=== PATIENT | female | born 1970 | race Caucasian/White ===

== ENCOUNTER 2022-10-01 09:27 | Day surgery (SDC) | payer OTHER, SELFPAY ==
--- NOTE | 2022-09-27 15:47 | RAD REPORT ---
EXAM DESCRIPTION: RAD - Chest Pa And Lat (2 Views) - 09/27/2022 3:33 pm CLINICAL HISTORY: PREOP COMPARISON: No comparisons FINDINGS: Lines: None. Lungs: No evidence of edema or pneumonia. Pleural: No significant pleural effusions or pneumothorax. Cardiac: The heart size is within normal limits. Mediastinum: Within normal limits. Bones: No acute fractures. Other: None IMPRESSION: No acute cardiopulmonary disease.
[2022-09-27 16:14] LABS: Absolute Lymphocytes (CBC) 2.2 K/uL (0.7-4.9); Hematocrit 39.5 % (36.0-45.0); Lymphocytes % 33.9 % (15.3-44.8); RBC Red Blood Cell Count 4.49 M/uL (3.86-4.86)
[2022-09-27 16:42] LABS: ALT/SGPT 30 U/L (13-56); AST/SGOT 17 U/L (15-37); Albumin 3.8 g/dL (3.4-5.0); Alkaline Phosphatase 75 U/L (45-117); Amylase 46 U/L (25-115); BUN Blood Urea Nitrogen 13 mg/dL (7-18); Bicarbonate 28 mmol/L (21-32); Bilirubin Total 0.2 mg/dL (0.2-1.0); Glomerular Filtration Rate 95 ml/min (=/>90); Glucose Level 108 mg/dL (74-106); Lipase 172 U/L (73-393); Potassium 3.7 mmol/L (3.5-5.1); Protein, Total 7.3 g/dL (6.4-8.2); Sodium Level 137 mmol/L (136-145)
[2022-09-27 16:45] LABS: Bilirubin Direct < 0.1 mg/dL (0-0.2)
--- NOTE | 2022-09-28 12:52 | EKG ---
Test Date: 2022-09-27 Test Time: 15:15:43 Meeting Facilitator: ABIGAIL MEASUREMENT RESULTS: Intervals: Rate: 57 ID: [id number] QRSD: 94 QT: 390 QTc: 379 [place]: P: 64 ID: [id number] QRS: 72 T: 68 INTERPRETIVE STATEMENTS: Sinus bradycardia with 1st degree AV block RSR' or QR pattern in V1 suggests right ventricular conduction delay Borderline ECG Compared to ECG 07/13/1997 05:43:00 RSR' in V1 or V2 now present Sinus arrhythmia no longer present Electronically Signed On 09-28-22 12:51:41 SECOND BAKER by Sumit Hurst
[2022-10-01] MEDS ORDERED: Ringers Lactate 1,000 ML IV ONE (09:44)
[2022-10-01] MEDS ORDERED: MIDAZOLAM HCL 2 MG/2 ML INJ ONE (10:05)
[2022-10-01] MEDS ORDERED: propofoL 200 MG/20 ML VIAL IV ONE (10:05)
[2022-10-01] MEDS ORDERED: ROCURONIUM 50 MG/5 ML VIAL IV ONE (10:05)
[2022-10-01] MEDS ORDERED: FENTANYL CITR 250 MCG/5 ML ONE (10:06)
[2022-10-01] MEDS ORDERED: ONDANSETRON 4 MG/2 ML VIAL ONE ×2 (10:08→12:29)
[2022-10-01] MEDS ORDERED: NEOSTIGMINE 1 MG/ML -10 ML VIAL ONE (10:08)
[2022-10-01] MEDS ORDERED: GLYCOPYRROLATE 0.2 MG/ML SYR ONE (10:10)
[2022-10-01] MEDS ORDERED: LIDOCAINE 2% MPF 5 ML VIAL ONE (10:11)
[2022-10-01] MEDS ORDERED: CEFOXITIN SODIUM 1 GM/VIAL ONE (10:48)
[2022-10-01] MEDS ORDERED: dexAMETHasone 10 MG/ML VIAL ONE (11:10)
--- NOTE | 2022-10-01 11:36 | P.BOP ---
Preoperative diagnosis: acute cholecystitis, symptomatic cholelithiasis Postoperative diagnosis: same Primary procedure: Laparoscopic cholecystectomy Mathematical Engineering Technician: YANNICK GONZALEZ ([employer]) Estimated blood loss: <10cc Specimen: gb Findings: as above Anesthesia: General Complications: None Transferred to: Recovery Room Condition: Fair
[2022-10-01 12:05] VITALS: O2SAT 100
[2022-10-01 14:01] VITALS: BP 107/67; TEMP 97.7
--- NOTE | 2022-10-01 19:21 | DS ---
Date of Discharge: 10/01/2022 Diagnoses: Acute cholecystitis and symptomatic cholelithiasis. Procedure: Laparoscopic cholecystectomy. Disposition: Home. Activity: As tolerated. No heavy lifting. Follow Up: In my office in 1 week. Call for appointment at [phone]. Discharge Instructions: Keep area dry for 48 hours then may shower. Keep Steri-Strip intact. LEAH/CATHERINE Voice ID: [id number] Report ID: [id number]
--- NOTE | 2022-10-01 19:21 | OP ---
Date of Procedure: 10/01/2022 Surgeon: Haider Mills MD Travel Pta: OSMAN Randall. Preoperative Diagnoses: Acute cholecystitis and symptomatic cholelithiasis. Postoperative Diagnoses: Acute cholecystitis and symptomatic cholelithiasis. Procedure: Laparoscopic cholecystectomy. Estimated Blood Loss: Less than 10 cc. Specimen: Gallbladder. Anesthesia: General plus local. Indications: This is the case of a female who comes to us with acute abdominal pain and diagnosed wi th acute cholecystitis and symptomatic cholelithiasis. Benefits, alternatives, and risks of laparosc opic and possible open cholecystectomy were fully explained, which include, but are not limited to in fection, bleeding, damage to adjacent structures, anesthesia complication, choledocholithiasis, bile leak, pancreatitis, CO, and even . She also understood this may not relieve the symptoms and sh e might need more than one surgical intervention. She understood and signed a consent. Procedure In Detail: The patient was brought to the operating room, placed in supine position, and a nesthesia was done without complication. Abdominal area was prepped and draped in usual sterile fash ion. Marcaine 0.5% was injected for local anesthetic followed by sharp incision of the skin in the i nfraumbilical region since the patient already had an incision in that area. Incision was carried do wn to fascia, which was opened under direct vision. Peritoneum was encountered and opened under dire ct vision. Vicryl #1 was placed inside the fascia. Nelia trocar was carefully introduced and pneum operitoneum was obtained. I placed 3 more trocars, 5 mm each one of them in epigastric and upper sanya drant areas under direct visualization. This allowed me to put a grasper in the fundus of the gallbl adder and another grasper in the infundibulum, retracting the gallbladder in the inferolateral fashio n exposing the triangle of Calot, obtaining critical view. Cystic duct and cystic artery were clearl y isolated, freed circumferentially and a connection between those and the gallbladder was clearly id entified. I proceeded to ligate those by using at least 3 clips proximal, 1 clip distal, and ligatio n in middle. Same was done with the cystic artery. We had a little branch of the cystic artery that was also ligated using same technique. Hepatic arteries and common bile duct were protected at all times. The gallbladder was removed from liver using Bovie cauterizer and removed from abdominal cavi ty using Endo Catch through the umbilical incision. The area was inspected once again after irrigati on and suction. Clips were intact. No bile leak. No bleeding. Gallbladder fossa with no bleeding. At that moment, I proceeded to remove the trocars under direct vision, deflated pneumoperitoneum, a nd closed the fascia with #1 Vicryl. Irrigated the subcutaneous tissue, closed that with 3-0 chromic , and skin in a subcuticular fashion with 3-0 chromic. Sponge count and instrument counts correct. Patient tolerated the procedure well. Patient was sent to recovery in stable condition. LEAH/CATHERINE Voice ID: [id number] Report ID: [id number]
== END 2022-10-01 14:25 | disposition home or self-care (01) ==
LOC: OR 09:27
PROVIDERS: ATTEND Surgery
PROC: 0FT44ZZ Resection of Gallbladder, Percutaneous Endoscopic Approach (ICD-10-PCS; principal; 2022-10-01 11:15)
DX: K80.10 Calculus of gallbladder with chronic cholecystitis without obstruction (principal)
CPT/HCPCS: 93005; 85025; 80048; 36415; 82150; 80076; 88304; 83690; 71046; 47562; J2704; J2710; J2001; J2250; J3010; J1100; J7120; J0694; J2405 ×2

== ENCOUNTER → 2023-08-07 | Day surgery (SDC) | payer OTHER | LOC: DS 09:28 | PROVIDERS: ATTEND Surgery | DX: N63.42 Unspecified lump in left breast, subareolar (principal); Z53.9 Procedure and treatment not carried out, unspecified reason | CPT/HCPCS: 76642 ==